=== PATIENT | male | born 1975 | race American Indian/Alaskan Native ===

== ENCOUNTER 2021-07-26 09:33 | Inpatient (IN) | payer SELFPAY ==
[2021-07-26] MEDS ORDERED: dilTIAZem 25 MG/5 ML INJ IV ONE (10:50)
[2021-07-26] MEDS ORDERED: AMIODARONE 150 MG/100 ML-ED 150 MG/100 ML BAG IV ONE (10:50)
--- NOTE | 2021-07-26 10:56 | Emergency Department Report ---
ED Palpitations HPI - General Chief Complaint: Chest Pain Stated Complaint: CHEST PAIN/ANDREEA Time Seen by Provider: 07/26/21 10:47 Source: patient Mode of arrival: Ambulatory Limitations: No Limitations - History of Present Illness Initial Comments: 45-year-old male with a history of hypertension and diabetes with morbid obesity who now presents with intermittent palpitation that has been going on for about a year after COVID-vaccine progressively worsened in the last 72 hours. Patient saw his cardiology in May about a month and a half ago when he has a normal EKG. Patient also mentioned right calf swelling and discomfort that has been going on for few weeks as well. Patient also reports some chest discomfort and associated with shortness of breath. No cough, fever or chills reported. No other modifying or associated factors reported. - Related Data Allergies Allergy/AdvReac Type Severity Reaction Status Date / Time No Known Allergies Allergy Verified 07/26/21 09:37 ED Review of Systems ROS: Stated complaint: CHEST PAIN/ANDREEA Other details as noted in HPI Comment: All other systems reviewed and negative Respiratory: shortness of breath, SOB with exertion, SOB at rest Cardiovascular: chest pain, palpitations ED Past Medical Hx - Past Medical History Previous Medical History?: Yes Hx Hypertension: Yes Hx Diabetes: Yes - Surgical History Past Surgical History?: No ED Physical Exam - General Limitations: No Limitations General appearance: alert, in distress (Due to shortness of breath), obese - Head Head exam: Present: atraumatic, normal inspection - Eye Eye exam: Present: normal appearance Pupils: Present: normal accommodation - ENT ENT exam: Present: normal exam, normal orophraynx, mucous membranes moist - Respiratory Respiratory exam: Present: normal lung sounds bilaterally, respiratory distress (Due to shortness of breath). Absent: accessory muscle use - Cardiovascular Cardiovascular Exam: Present: irregular rhythm (Atrial fibrillation) - GI/Abdominal GI/Abdominal exam: Present: soft, normal bowel sounds. Absent: distended, tenderness - Extremities Exam Extremities exam: Present: tenderness (Right calf with swelling), normal capillary refill, pedal edema - Neurological Exam Neurological exam: Present: alert, oriented X3 - Psychiatric Psychiatric exam: Present: normal affect, normal mood - Skin Skin exam: Present: warm, normal color ED Course Vital Signs 07/26/21 07/26/21 07/26/21 09:39 10:00 10:08 Temperature 98 F Pulse Rate 84 171 H 119 H Respiratory 16 25 H 17 Rate Blood Pressure Blood Pressure 168/104 165/84 [Left] O2 Sat by Pulse 96 98 Oximetry 07/26/21 07/26/21 07/26/21 10:15 10:31 10:45 Temperature Pulse Rate 125 H 116 H 105 H Respiratory 16 20 25 H Rate Blood Pressure 166/102 165/84 193/130 Blood Pressure [Left] O2 Sat by Pulse 97 100 99 Oximetry 07/26/21 07/26/21 07/26/21 10:49 11:01 11:15 Temperature Pulse Rate 110 H 113 H Respiratory 19 21 16 Rate Blood Pressure 141/89 128/97 Blood Pressure [Left] O2 Sat by Pulse 100 100 99 Oximetry 07/26/21 07/26/21 07/26/21 11:31 11:45 12:01 Temperature Pulse Rate 93 H 75 79 Respiratory 19 16 14 Rate Blood Pressure 131/88 131/94 139/90 Blood Pressure [Left] O2 Sat by Pulse 99 Oximetry 07/26/21 07/26/21 07/26/21 12:15 12:31 12:45 Temperature Pulse Rate 72 89 78 Respiratory 16 28 H 15 Rate Blood Pressure 144/98 141/94 137/99 Blood Pressure [Left] O2 Sat by Pulse Oximetry 07/26/21 14:11 Temperature Pulse Rate 78 Respiratory 14 Rate Blood Pressure Blood Pressure 137/99 [Left] O2 Sat by Pulse 99 Oximetry - Reevaluation(s) Reevaluation #1: 07/26/21 11:02 Patient is here with intermittent palpitation associated with chest pain and shortness of breath--noted on EKG with atrial fibrillation at a rate of 125 bpm--differential diagnosis may include but not limited to mild cardiac infarction, undiagnosed CHF, pulmonary embolism, DVT with unilateral swelling and tenderness of right calf, pneumonia, systemic infection so to rule out all this we will go ahead and order routine labs that include CBC, CMP, urinalysis--for any infectious process or electrolyte abnormality. We will also get cardiac enzyme/troponin in combination with the EKG. We will also order chest x-ray for any pulmonary infection and D-dimer for suspected DVT/PE. In the meantime given 20 mg of Cardizem for rate control and 150 mg of amiodarone for cardiac muscle stabilization. We will also go ahead and get cardiology involved in this patient and admit patient for further evaluation with likely echocardiogram of the heart to rule out any cardiac valve clot vegetation. Reevaluation #2: 07/26/21 12:34 Labs reviewed note this elevated D-dimer at 376.26--which raise concern for PE and DVT of the right leg so we will go ahead and order Doppler ultrasound of the right lower extremities and CTA of chest to rule out PE. Reevaluation #3: 07/26/21 14:06 CTA chest, CXR and US right leg noted with no acute findings -- pt will be called in to hospitalist for admission -- Reevaluation #4: 07/26/21 14:09 Dr Page consulted who accept pt for further evaluation and treatment - Consultations Consultation #1: 07/26/21 14:17 Dr. Camilo Nava hospitalist Consultation #2: 07/26/21 14:27 Dr Evita Dillon consulted who plan to follow up with patient when consulted ED Medical Decision Making - Lab Data Result diagrams: 07/26/21 10:57 07/26/21 10:57 - EKG Data -: EKG Interpreted by Me Rate: tachycardia (Atrial fibrillation at the rate of 125 beats per minutes) - EKG Data Interpretation: LVH 07/26/21 11:12 As noted above - Radiology Data Radiology results: report reviewed, image reviewed interpreted by me: CTA chest with no central PE CXR noted with no acute findings Doppler right lower leg with no DVT- - Medical Decision Making See progress note for detail CHADS2 with score of 2 with DM and hypertension -- this patient will need anticoagulant -- and EcHO on admission-- - Differential Diagnosis See progress note Critical Care Time: Yes (60 minutes) Critical care time in (mins) excluding proc time.: 60 Critical care attestation.: If time is entered above; I have spent that time in minutes in the direct care of this critically ill patient, excluding procedure time. This patient came in with palpitation and noted with atrial fibrillation with dyspnea and was immediately started on IV fluids given IV Cardizem for rate control and amiodarone for cardiac muscle stabilization and due to high prob ability of clinically significant, life threatening deterioration, this patient required my highest level of preparedness to intervene emergently and I personally spent this critical care time directly and personally managing this patient. This critical care time included obtaining a history; examining this patient; pulse oximetry ; ordering and review of studies ; arranging urgent treatment with development of a management plan ; evaluation of patient's response to treatment ; frequent reassessment ; and, discussion with other providers. This critical care time was performed to assess and manage the high probability of imminent, life-threatening deterioration that could result in multiple organ damage if not done in a timely fashion. ED Disposition Clinical Impression: Palpitations Atrial fibrillation Qualifiers: Atrial fibrillation type: unspecified Qualified Code(s): I48.91 - Unspecified atrial fibrillation Dyspnea Qualifiers: Dyspnea type: unspecified Qualified Code(s): R06.00 - Dyspnea, unspecified Chest pain Qualifiers: Chest pain type: chest pain on breathing Qualified Code(s): R07.1 - Chest pain on breathing Disposition: 09 ADMITTED INPATIENT Is pt being admited?: Yes Does the pt Need Aspirin: No Condition: Stable Instructions: Nonspecific Chest Pain, Adult Time of Disposition: 14:10 (Dr Page consulted who accept pt for further evaluation and treament )
[2021-07-26 11:05] LABS: Bacteria,Urine 1+ /HPF (Negative); Bilirubin,Urine NEG (Negative); Blood,Urine SM (Negative); Color,Urine Straw (Yellow); Urobilinogen,Urine < 2.0 mg/dL (<2.0)
[2021-07-26 11:12] LABS: Amphetamine Screen,Urine Negative; Benzodiazepines Screen,Urine Negative; Cocaine Screen,Urine Negative; Methadone Screen,Urine Negative; Opiate Screen,Urine Negative
[2021-07-26 11:19] LABS: Basophils % (Auto) 0.6 % (0.0-1.8); Eosinophils # (Auto) 0.1 K/mm3 (0.0-0.4); Eosinophils % (Auto) 1.4 % (0.0-4.3); Hematocrit 49.8 % (35.5-45.6); Hemoglobin 17.1 gm/dl (11.8-15.2); Lymphocytes # (Auto) 1.2 K/mm3 (1.2-5.4); Lymphocytes % (Auto) 19.8 % (13.4-35.0); Mean Corpuscular HGB Conc 34 % (32-34); Mean Corpuscular Volume 89 fl (84-94); Monocytes # (Auto) 0.6 K/mm3 (0.0-0.8); Monocytes % (Auto) 9.2 % (0.0-7.3); Platelet Count 205 K/mm3 (140-440); Red Blood Count 5.61 M/mm3 (3.65-5.03)
[2021-07-26 11:23] LABS: Cannabinoid Screen,Urine Positive
[2021-07-26 11:28] LABS: INR 0.87 (0.87-1.13)
[2021-07-26 11:29] LABS: Partial Thromboplastin Time 26.8 Sec. (24.2-36.6)
[2021-07-26 11:43] LABS: Alanine Aminotransferase 24 units/L (7-56); Albumin 3.3 g/dL (3.9-5); BUN/Creatinine Ratio 14; Blood Urea Nitrogen 20 mg/dL (9-20); Calcium 8.5 mg/dL (8.4-10.2); Hemolysis Index 11
[2021-07-26 11:46] LABS: Protein,Urine >500 mg/dL (Negative)
[2021-07-26] MEDS ORDERED: POTASSIUM CHLORIDE ER 20 MEQ TAB PO ONE (12:39)
--- NOTE | 2021-07-26 13:19 | Vascular Lab Report ---
DUPLEX DOPPLER LOWER EXTREMITY VEINS, RIGHT INDICATION / CLINICAL INFORMATION: elevated d-dimer and pain with swellings. TECHNIQUE: Duplex doppler imaging was performed through the veins of the right lower extremity using venous comp ression and other maneuvers. COMPARISON: None available. FINDINGS: RIGHT COMMON FEMORAL VEIN: Negative. RIGHT FEMORAL VEIN: Negative. RIGHT POPLITEAL VEIN: Negative. RIGHT CALF VEINS: Negative. ADDITIONAL FINDINGS: None. IMPRESSION: 1. No sonographic evidence for DVT in the right lower extremity. Signer Name: Ron Madden MD Signed: 07/26/2021 1:14 PM Workstation Name: [id number]
--- NOTE | 2021-07-26 13:33 | XRay Report ---
CHEST 1 VIEW INDICATION / CLINICAL INFORMATION: palpitation with chest pain and sob. COMPARISON: None available. FINDINGS: SUPPORT DEVICES: None. HEART / MEDIASTINUM: No significant abnormality. LUNGS / PLEURA: No significant pulmonary abnormality. BONES: No significant osseous abnormality. ADDITIONAL FINDINGS: No significant additional findings. IMPRESSION: 1. No active cardiopulmonary disease. Signer Name: Horacio Chow II, MD Signed: 07/26/2021 1:29 PM Workstation Name: [id number]
--- NOTE | 2021-07-26 13:55 | Cat Scan Report ---
CTA CHEST WITH CONTRAST INDICATION / CLINICAL INFORMATION: sob/ a-fib and elevated d-dimer. TECHNIQUE: Axial CT images were obtained through the chest after injection of 90 cc of Omnipaque 350 IV contrast. 3 plane MIP and/or 3D reconstructions were produced. All CT scans at this location are p erformed using CT dose reduction for ALARA by means of automated exposure control. COMPARISON: None available. FINDINGS: PULMONARY ARTERIES: No central pulmonary embolism. THORACIC AORTA: No significant abnormality. HEART: No significant abnormality. CORONARY ARTERY CALCIFICATION: None. MEDIASTINUM / DAR: No significant abnormality. PLEURA: No pleural effusion. No pneumothorax. LUNGS: No acute air space or interstitial disease. ADDITIONAL FINDINGS: Incidentally noted apparent right subclavian artery. UPPER ABDOMEN: No acute findings. SKELETAL STRUCTURES: No significant osseous abnormality. IMPRESSION: 1. No CT evidence for central pulmonary embolism. 2. No acute findings. Signer Name: Vidal Reyes DO Signed: 07/26/2021 1:51 PM Workstation Name: [email or web address]
[2021-07-26] MEDS ORDERED: MORPHINE 2 MG/1 ML INJ IV PRN ×2 (14:11→16:00)
[2021-07-26] MEDS ORDERED: IBUPROFEN 600 MG TAB PO PRN (14:11)
--- NOTE | 2021-07-26 15:02 | History and Physical Report ---
History of Present Illness Chief complaint: My heart is pounding in my chest History of present illness: 45 YO Male with HTN, DM, Obesity, Metabolic Syndrome presents to ED for evaluation. Patient reports "my heart is pounding inside my chest". Patient states that he has experienced the aforementioned symptoms over the past 1 year after mary lou a coronavirus infection. Patient states that his symptoms are intermittent over the past year and are normally relieved with rest and deep breathing. Patient states that he experienced persistence of the aforementioned symptoms over the past 72 hours with persistent and worsening symptoms over the same timeframe. Patient knowledges shortness of breath, chest discomfort, decreased exercise tolerance, orthopnea, as well as paroxysmal nocturnal dyspnea. Patient transported to [facility] via private vehicle for further care and evaluation of the aforementioned symptoms. The patient was seen and evaluated in the emergency department. All lab and imaging studies reviewed. Patient was found to have a blood pressure of 168/104 mmHg. Patient underwent EKG and was found to have new onset atrial fibrillation with rapid ventricular response with a heart rate in the 170s, as well as clinical symptoms consistent with CHF decompensation. Patient treated with IV amiodarone therapy as well as Cardizem in the emergency department with improvement in symptoms. Patient subsequently remained in atrial fibrillation. Admitted to telemetry due to increased risk of worsening symptoms. Cardiology team consulted in ED. Patient denies fever, chills, productive cough, skin rash, recent contact, known exposure to COVID-19. No prior admission for review. No medication listed at time of admission for reconciliation. Advanced care planning conducted in ED. Past History Past Medical History: diabetes, hypertension, other (See HPI) Past Surgical History: No surgical history Social history: , lives with family. denies: smoking, alcohol abuse, prescription drug abuse Family history: diabetes, hypertension Medications and Allergies Allergies Allergy/AdvReac Type Severity Reaction Status Date / Time No Known Allergies Allergy Verified 07/26/21 09:37 Active Meds: Active Medications Ibuprofen (Ibuprofen 600 Mg Tab) 600 mg PO Q6H PRN PRN Reason: Pain, Mild (1-3) Morphine Sulfate (Morphine 2 Mg/1 Ml Inj) 2 mg IV Q4H PRN PRN Reason: Pain, Moderate (4-6) Sodium Chloride (Sodium Chloride 0.9% 10 Ml Flush Syringe) 10 ml IV BID CHELSIE Sodium Chloride (Sodium Chloride 0.9% 10 Ml Flush Syringe) 10 ml IV PRN PRN PRN Reason: LINE FLUSH Review of Systems Constitutional: weight gain, fatigue, no weight loss, no fever, no chills Ears, nose, mouth and throat: no ear pain, no ear discharge, no decreased hearing, no nasal congestion Cardiovascular: chest pain, orthopnea, rapid/irregular heart beat, shortness of breath, dyspnea on exertion, paroxysmal nocturnal dyspnea, high blood pressure, decreased exercise tolerance Gastrointestinal: no abdominal pain, no nausea, no vomiting, no diarrhea Genitourinary Male: no hematuria, no flank pain, no discharge, no urinary frequency, no urinary hesitancy Rectal: no pain, no incontinence, no bleeding Musculoskeletal: no neck stiffness, no neck pain, no shooting arm pain, no arm numbness/tingling, no low back pain Integumentary: no rash, no pruritis, no redness, no sores, no wounds, no jaundice Neurological: no head injury, no transient paralysis, no paralysis, no weakness, no parathesias, no numbness, no tingling, no seizures Psychiatric: no anxiety, no memory loss, no sleep disturbances, no insomnia, no hypersomnia, no change in appetite, no suicidal ideation Endocrine: no cold intolerance, no heat intolerance, no polyphagia, no excessive thirst, no polydipsia, no polyuria, no nocturia Hematologic/Lymphatic: no easy bruising, no easy bleeding Allergic/Immunologic: no urticaria, no allergic rhinitis, no wheezing Exam - Constitutional Vitals: Temp Pulse Resp BP Pulse Ox 98 F 78 14 137/99 99 07/26/21 09:39 07/26/21 14:11 07/26/21 14:11 07/26/21 14:11 07/26/21 14:11 General appearance: Present: mild distress, obese - EENT Eyes: Present: PERRL ENT: hearing intact, clear oral mucosa - Neck Neck: Present: supple, normal ROM - Respiratory Respiratory effort: normal Respiratory: bilateral: CTA - Cardiovascular Rhythm: irregularly irregular Heart Sounds: Present: S1 & S2. Absent: rub, click - Extremities Extremities: pulses symmetrical Extremity abnormal: edema Peripheral Pulses: within normal limits - Abdominal General gastrointestinal: Present: soft, non-tender, non-distended, normal bowel sounds Male genitourinary: Present: normal - Integumentary Integumentary: Present: clear, warm, dry - Musculoskeletal Musculoskeletal: gait normal, strength equal bilaterally - Psychiatric Psychiatric: appropriate mood/affect, intact judgment & insight - Neurologic Neurologic: CNII-XII intact, moves all extremities HEART Score - HEART Score Troponin: Troponin T < 0.010 ng/mL (0.00-0.029) 07/26/21 10:57 Results - Labs CBC & Chem 7: 07/26/21 10:57 07/26/21 10:57 Labs: Abnormal lab results 07/26/21 07/26/21 07/26/21 Range/Units 10:57 10:57 10:57 RBC 5.61 H (3.65-5.03) M/mm3 Hgb 17.1 H (11.8-15.2) gm/dl Hct 49.8 H (35.5-45.6) % [place] % (Auto) 9.2 H (0.0-7.3) % D-Dimer 376.26 H (0-234) ng/mlDDU Potassium 3.2 L (3.6-5.0) mmol/L Chloride 108.1 H (98-107) mmol/L Creatinine 1.4 H (0.8-1.3) mg/dL Glucose 138 H (75-100) mg/dL Albumin 3.3 L (3.9-5) g/dL Urine pH (5.0-7.0) 07/26/21 Range/Units Unknown RBC (3.65-5.03) M/mm3 Hgb (11.8-15.2) gm/dl Hct (35.5-45.6) % [place] % (Auto) (0.0-7.3) % D-Dimer (0-234) ng/mlDDU Potassium (3.6-5.0) mmol/L Chloride (98-107) mmol/L Creatinine (0.8-1.3) mg/dL Glucose (75-100) mg/dL Albumin (3.9-5) g/dL Urine pH 8.0 H (5.0-7.0) Assessment and Plan - Patient Problems (1) New onset atrial fibrillation Status: Acute Plan to address problem: Patient treated with medical cardioversion in the emergency department. Patient remains in atrial fibrillation. Telemetry monitoring, rate control, cardiology team consulted, prophylactic anticoagulation for now, full dose aspirin, echocardiogram ordered and pending at time of admission, thyroid panel, magnesium level. [id number] score: 2 (2) Angina at rest Status: Acute Plan to address problem: Cardiology team consulted, suspect secondary to atrial fibrillation with rapid ventricular response, pain control, supportive care. Further care and evaluation as per cardiology team. (3) Diastolic CHF Status: Acute Qualifiers: Heart failure chronicity: acute Qualified Code(s): I50.31 - Acute diastolic (congestive) heart failure Plan to address problem: Strict I's/O, monitor urine output every shift, daily weight, afterload reduction, blood pressure control, thyroid panel, magnesium level, echocardiogram ordered and pending at time of admission. (4) Hypertension Status: Acute Qualifiers: Hypertension type: primary hypertension Qualified Code(s): I10 - Essential (primary) hypertension Plan to address problem: Monitor blood pressure every shift, continue medical management. (5) Diabetes Status: Acute Plan to address problem: Consistent carbohydrate diet, Accu-Chek, insulin protocol, hypoglycemia protocol. (6) DVT prophylaxis Status: Acute Plan to address problem: SCD to bilateral lower extremities while in bed, prophylactic anticoagulation (7) Advance care planning Status: Acute Plan to address problem: Disease education data, care plan discussed, diagnoses discussed, prognosis discussed, patient is full code. Patient acknowledges understanding and agreement with care plan, +30 minutes. (8) Preventative health care Status: Acute Plan to address problem: Patient counseled regarding abstinence from marijuana, balanced diet, weight loss, increase physical activity discharge, outpatient follow-up with primary care physician for all age and risk factor appropriate screening test. +30 minutes.
[2021-07-26] MEDS ORDERED: MORPHINE 4 MG/1 ML INJ IV PRN (15:05)
[2021-07-26] MEDS ORDERED: HEPARIN 5,000 UNIT/1 ML VIAL SUB-Q SCH (15:22)
[2021-07-26] MEDS ORDERED: ONDANSETRON 4 MG/2 ML INJ IV PRN (15:30)
[2021-07-26] MEDS ORDERED: oxyCODONE /ACETAMINOPHEN 5-325MG TAB PO PRN (15:30)
[2021-07-26] MEDS ORDERED: ACETAMINOPHEN 325 MG TAB PO PRN (15:30)
[2021-07-26] MEDS ORDERED: ALBUTEROL 2.5 MG/3 ML NEBU IH PRN (16:00)
--- NOTE | 2021-07-26 16:41 | Consultation ---
History of Present Illness Consult date: 07/26/21 Requesting physician: CLAYTON GARCIA Consult reason: atrial fibrillation History of present illness: Patient is a 45-year-old male with a past medical history of hypertension, diabetes, GERD who presented to the ED today with a complaint of palpitations which started this a.m. Patient reports that for about a year after receiving the COVID vaccination he has had intermittent palpitations however when he woke up this morning he reports that the palpitations were worse than his ever had them before. He also reports some lightheadedness and shortness of breath associated with the palpitation. Patient came to the ED to be further evaluated. In the ED patient was treated with IV Cardizem and IV amiodarone and per ED staff patient became rate controlled. Patient denies any complaint of c hest pain, nausea, vomiting, lightheadedness, or diaphoresis. At the time of interview patient also reports that he is no longer short of breath. Patient is previously unknown to our practice. Cardiology is consulted for new onset A. fib. Past History Past Medical History: diabetes, hypertension, other (See HPI) Past Surgical History: No surgical history Social history: , lives with family. denies: smoking, alcohol abuse, prescription drug abuse Family history: diabetes, hypertension Medications and Allergies Allergies Allergy/AdvReac Type Severity Reaction Status Date / Time No Known Allergies Allergy Verified 07/26/21 09:37 Active Meds: Active Medications Acetaminophen (Acetaminophen 325 Mg Tab) 650 mg PO Q4H PRN PRN Reason: Pain MILD(1-3)/Fever >100.5/MONSON Albuterol (Albuterol 2.5 Mg/3 Ml Nebu) 2.5 mg IH Q4HRT PRN PRN Reason: Shortness Of Breath Aspirin (Aspirin 325 Mg Tab) 325 mg PO QDAY CHELSIE Ibuprofen (Ibuprofen 600 Mg Tab) 600 mg PO Q6H PRN PRN Reason: Pain, Mild (1-3) Morphine Sulfate (Morphine 2 Mg/1 Ml Inj) 2 mg IV Q8H PRN PRN Reason: Pain , Severe (7-10) Ondansetron HCl (Ondansetron 4 Mg/2 Ml Inj) 4 mg IV Q8H PRN PRN Reason: Nausea And Vomiting Oxycodone/Acetaminophen (Oxycodone /Acetaminophen 5-325mg Tab) 1 tab PO Q6H PRN PRN Reason: Pain, Moderate (4-6) Sodium Chloride (Sodium Chloride 0.9% 10 Ml Flush Syringe) 10 ml IV BID CHELSIE Sodium Chloride (Sodium Chloride 0.9% 10 Ml Flush Syringe) 10 ml IV PRN PRN PRN Reason: LINE FLUSH Review of Systems Constitutional: no fever, no chills, no sweats Ears, nose, mouth and throat: no sinus pressure, no sinus pain Cardiovascular: palpitations, lightheadedness, shortness of breath, no chest pain Respiratory: shortness of breath, no cough, no dyspnea on exertion Gastrointestinal: no abdominal pain, no nausea, no vomiting Musculoskeletal: no neck pain, no low back pain, no shooting leg pain, no leg numbness/tingling Integumentary: no rash, no pruritis, no redness Neurological: no head injury, no transient paralysis, no weakness Psychiatric: no anxiety, no memory loss Endocrine: no cold intolerance, no heat intolerance Hematologic/Lymphatic: no easy bruising, no easy bleeding Physical Examination Vital Signs Temp Pulse Resp BP Pulse Ox 98 F 84 16 168/104 96 07/26/21 09:39 07/26/21 09:39 07/26/21 09:39 07/26/21 09:39 07/26/21 09:39 General appearance: no acute distress HEENT: Positive: PERRL, Normocephaly Neck: Positive: trachea midline Cardiac: Positive: irregularly irregular Lungs: Positive: Normal Breath Sounds Neuro: Positive: Grossly Intact Abdomen: Positive: Soft, Active Bowel Sounds Skin: Negative: Rash, Suspicious Lesions, Ulceration Extremities: Present: upper extr. pulses Results 07/26/21 10:57 07/26/21 10:57 Cardiac Enzymes 07/26/21 Range/Units 10:57 AST 23 (5-40) units/L Coagulation 07/26/21 Range/Units 10:57 PT 12.7 (12.2-14.9) Sec. INR 0.87 (0.87-1.13) APTT 26.8 (24.2-36.6) Sec. CBC 07/26/21 Range/Units 10:57 WBC 6.2 (4.5-11.0) K/mm3 RBC 5.61 H (3.65-5.03) M/mm3 Hgb 17.1 H (11.8-15.2) gm/dl Hct 49.8 H (35.5-45.6) % Plt Count 205 (140-440) K/mm3 Lymph # (Auto) 1.2 (1.2-5.4) K/mm3 [place] # (Auto) 0.6 (0.0-0.8) K/mm3 Eos # (Auto) 0.1 (0.0-0.4) K/mm3 Baso # (Auto) 0.0 (0.0-0.1) K/mm3 Comprehensive Metabolic Panel 07/26/21 Range/Units 10:57 Sodium 142 (137-145) mmol/L Potassium 3.2 L (3.6-5.0) mmol/L Chloride 108.1 H (98-107) mmol/L Carbon Dioxide 24 (22-30) mmol/L BUN 20 (9-20) mg/dL Creatinine 1.4 H (0.8-1.3) mg/dL Glucose 138 H (75-100) mg/dL Calcium 8.5 (8.4-10.2) mg/dL AST 23 (5-40) units/L ALT 24 (7-56) units/L Alkaline Phosphatase 78 (35-129) units/L Total Protein 6.4 (6.3-8.2) g/dL Albumin 3.3 L (3.9-5) g/dL - Imaging and Cardiology Echo: pending EKG: pending, image reviewed EKG interpretations - Telemetry EKG Rhythm: Atrial Fibrillation - EKG Supraventricular dysrhythmia: atrial fibrillation Assessment and Plan Patient is a 45-year-old male with a past medical history of hypertension, diabetes, GERD who presented to the ED today with a complaint of palpitations which started the morning of admission to A. fib with RVR Hypertension Diabetes GERD Plan: EKG shows A. fib with RVR rate 125 and LVH. No acute ischemic changes. Troponins negative x1. Patient denies any complaint of chest pain Repeat EKG pending Will stop metoprolol 25 mg p.o. twice daily and convert to Cardizem 30 mg p.o. 3 times daily Initiate anticoagulation with Eliquis Mg and Echo pending BNP negative and patient appears euvolemic on exam without any complaints of shortness of breath patient is not clinically in heart failure Patient seen in conjunction with Dr. Archuleta who agrees with this plan of care - Patient Problems (1) Diabetes Current Visit: No Status: Acute (2) New onset atrial fibrillation Current Visit: No Status: Acute (3) Palpitations Current Visit: No Status: Acute
[2021-07-26] MEDS ORDERED: METOPROLOL TARTRATE 25 MG TAB PO SCH (17:00)
[2021-07-26] MEDS: dilTIAZem 30 MG TAB PO SCH ×2 (17:27→21:21)
[2021-07-26] MEDS ORDERED: dilTIAZem 30 MG TAB PO SCH (18:00)
[2021-07-26 18:37] LABS: Hematocrit 45.7 % (35.5-45.6); Hemoglobin 15.6 gm/dl (11.8-15.2); Mean Corpuscular HGB Conc 34 % (32-34); Mean Corpuscular Volume 90 fl (84-94); Platelet Count 197 K/mm3 (140-440); Red Cell Distribution Width 14.3 % (13.2-15.2)
[2021-07-26 18:47] LABS: INR 0.88 (0.87-1.13)
[2021-07-26 18:48] LABS: Partial Thromboplastin Time 27.8 Sec. (24.2-36.6)
[2021-07-26] MEDS: APIXABAN 5 MG TAB PO SCH (21:19)
[2021-07-27] MEDS: dilTIAZem 30 MG TAB PO SCH ×2 (07:16→15:00)
--- NOTE | 2021-07-27 09:44 | Progress Note ---
Assessment and Plan Patient is a 45-year-old male with a past medical history of hypertension, diabetes, GERD who presented to the ED today with a complaint of palpitations which started the morning of admission to [facility] with RVR Hypertension Diabetes GERD Plan: Patient is back in sinus rhythm. He is now on systemic anticoagulation with Blessing fadia. Continue Cardizem. Follow-up and optimize electrolytes. Follow-up on echocardiogram. Likely discharge soon. Discussed with patient. Subjective Interval history: Patient feels much better. Nayan is with him in the room. No complaints. Objective Vital Signs Temp Pulse Resp BP BP Pulse Ox 07/27/21 07:16 67 07/27/21 07:13 98.2 F 61 18 163/90 98 07/27/21 04:26 64 20 171/89 93 07/27/21 04:00 61 07/26/21 23:56 60 18 163/93 97 07/26/21 23:55 99.1 F 60 18 169/93 94 07/26/21 23:08 96 07/26/21 21:21 92 H 07/26/21 20:07 60 18 165/103 99 07/26/21 20:05 99.1 F 96 H 18 165/103 96 07/26/21 20:00 103 H 07/26/21 19:01 158 H 19 65/35 07/26/21 18:51 144 H 11 L 65/35 07/26/21 18:41 142 H 18 177/109 07/26/21 18:39 140 H 17 177/109 07/26/21 17:27 88 155/99 07/26/21 17:24 90 15 155/99 100 07/26/21 15:00 90 19 155/99 07/26/21 14:45 106 H 17 137/99 07/26/21 14:31 99 H 15 162/101 07/26/21 14:15 93 H 137/99 07/26/21 14:11 78 14 137/99 99 07/26/21 12:45 78 15 137/99 07/26/21 12:31 89 28 H 141/94 07/26/21 12:15 72 16 144/98 07/26/21 12:01 79 14 139/90 07/26/21 11:45 75 16 131/94 07/26/21 11:31 93 H 19 131/88 99 07/26/21 11:15 113 H 16 128/97 99 07/26/21 11:01 110 H 21 141/89 100 07/26/21 10:49 19 100 07/26/21 10:45 105 H 25 H 193/130 99 07/26/21 10:31 116 H 20 165/84 100 07/26/21 10:15 125 H 16 166/102 97 07/26/21 10:08 119 H 17 165/84 98 07/26/21 10:00 171 H 25 H - Physical Examination HEENT: Positive: PERRL, Normocephaly Neck: Positive: trachea midline Neuro: Positive: Grossly Intact Abdomen: Positive: Soft, Active Bowel Sounds Skin: Negative: Rash, Suspicious Lesions, Ulceration Extremities: Present: upper extr. pulses - Labs and Meds Cardiac Enzymes 07/26/21 Range/Units 10:57 AST 23 (5-40) units/L Coagulation 07/26/21 07/26/21 Range/Units 10:57 18:05 PT 12.7 12.9 (12.2-14.9) Sec. INR 0.87 0.88 (0.87-1.13) APTT 26.8 27.8 (24.2-36.6) Sec. CBC 07/26/21 07/26/21 Range/Units 10:57 18:05 WBC 6.2 6.2 (4.5-11.0) K/mm3 RBC 5.61 H 5.10 H (3.65-5.03) M/mm3 Hgb 17.1 H 15.6 H (11.8-15.2) gm/dl Hct 49.8 H 45.7 H (35.5-45.6) % Plt Count 205 197 (140-440) K/mm3 Lymph # (Auto) 1.2 (1.2-5.4) K/mm3 [place] # (Auto) 0.6 (0.0-0.8) K/mm3 Eos # (Auto) 0.1 (0.0-0.4) K/mm3 Baso # (Auto) 0.0 (0.0-0.1) K/mm3 Comprehensive Metabolic Panel 07/26/21 07/26/21 Range/Units 10:57 18:05 Sodium 142 (137-145) mmol/L Potassium 3.2 L (3.6-5.0) mmol/L Chloride 108.1 H (98-107) mmol/L Carbon Dioxide 24 (22-30) mmol/L BUN 20 (9-20) mg/dL Creatinine 1.4 H 1.6 H (0.8-1.3) mg/dL Glucose 138 H (75-100) mg/dL Calcium 8.5 (8.4-10.2) mg/dL AST 23 (5-40) units/L ALT 24 (7-56) units/L Alkaline Phosphatase 78 (35-129) units/L Total Protein 6.4 (6.3-8.2) g/dL Albumin 3.3 L (3.9-5) g/dL - Imaging and Cardiology EKG: pending, image reviewed Echo: pending
[2021-07-27] MEDS ORDERED: levETIRAcetam 500 MG TAB PO SCH (10:00)
[2021-07-27] MEDS ORDERED: NON-FORMULARY EACH (Rosuvastatin Calcium [Crestor] 10 MG Tablet) PO SCH (10:00)
[2021-07-27] MEDS ORDERED: PANTOPRAZOLE 40 MG TAB PO SCH (10:00)
[2021-07-27] MEDS ORDERED: NON-FORMULARY EACH (Omeprazole [Omeprazole] 40 MG Capsule.Dr) PO SCH (10:00)
[2021-07-27] MEDS ORDERED: NON-FORMULARY EACH (Losartan [Cozaar] 100 MG Tablet) PO SCH (10:00)
[2021-07-27] MEDS ORDERED: LOSARTAN 50 MG TAB PO SCH (10:00)
[2021-07-27] MEDS ORDERED: NON-FORMULARY EACH (Metformin Hcl [Metformin] 1,000 MG Tablet) PO SCH (10:00)
[2021-07-27] MEDS ORDERED: metFORMIN 500 MG TAB PO SCH (10:00)
[2021-07-27] MEDS ORDERED: ASPIRIN 325 MG TAB PO SCH (10:00)
[2021-07-27] MEDS: APIXABAN 5 MG TAB PO SCH (10:14)
--- NOTE | 2021-07-27 11:19 | Progress Note ---
Assessment and Plan Patient is a 45-year-old male with a past medical history of hypertension, diabetes, GERD who presented to the ED with a complaint of palpitations which started this a.m. In the ED patient was found to be in atrial fibrillation and was treated with IV Cardizem and IV amiodarone and per ED staff patient became rate controlled. Cardiology is consulted for new onset Atrial fib 07/27: Patient is back in sinus rhythm. He is now on systemic anticoagulation with Eliquis. Continue Cardizem. Follow-up and optimize electrolytes. Follow-up on echocardiogram. Likely discharge soon. Discussed with patient. Assessment and plan: (1) New onset atrial fibrillation Status: Acute Plan to address problem: Patient treated with medical cardioversion in the emergency department. Patient remains in atrial fibrillation. Telemetry monitoring, rate control, cardiology team consulted, prophylactic anticoagulation for now, full dose aspirin, echocardiogram ordered, follow thyroid panel, magnesium level. [id number] score: 2 (2) Angina at rest Status: Acute Plan to address problem: Cardiology team consulted, suspect secondary to atrial fibrillation with rapid ventricular response, pain control, supportive care. Further care and evaluation as per cardiology team. (3) Diastolic CHF Status: Acute Qualifiers: Heart failure chronicity: acute Qualified Code(s): I50.31 - Acute diastolic (congestive) heart failure Plan to address problem: Strict I's/O, monitor urine output every shift, daily weight, afterload reduction, blood pressure control, thyroid panel, magnesium level, echocardiogram ordered and pending at time of admission. (4) Hypertension Status: Acute Qualifiers: Hypertension type: primary hypertension Qualified Code(s): I10 - Essential (primary) hypertension Plan to address problem: Monitor blood pressure every shift, continue medical management. (5) Diabetes Status: Acute Plan to address problem: Consistent carbohydrate diet, Accu-Chek, insulin protocol, hypoglycemia protocol. (6) DVT prophylaxis Status: Acute Plan to address problem: SCD to bilateral lower extremities while in bed, prophylactic anticoagulation (7) Advance care planning Status: Acute Plan to address problem: Disease education data, care plan discussed, diagnoses discussed, prognosis discussed, patient is full code. Patient acknowledges understanding and agreement with care plan, +30 minutes. (8) Preventative health care Status: Acute Plan to address problem: Patient counseled regarding abstinence from marijuana, balanced diet, weight loss, increase physical activity discharge, outpatient follow-up with primary care physician for all age and risk factor appropriate screening test. +30 minutes. Subjective Date of service: 07/27/21 Interval history: Patient seen and examined. Medical records and medication list reviewed. No acute event overnight noted by the RN. Patient denies any chest pain or difficulty breathing. Patient is tolerating diet. Discussed plan of care at bedside with patient. Patient is rate controlled and monitor Objective - Exam Narrative Exam: GENERAL: well-developed and well-nourished male lying on bed appeared to be in no discomfort. HEENT: Normocephalic. Atraumatic. No conjunctival congestion or icterus. Patient has moist mucous membranes. NECK: Supple. Trachea midline. CHEST/LUNGS: Clear to auscultated bilaterally, breathing nonlabored. No wheezes crackles or rhonchi. HEART/CARDIOVASCULAR: Regular in rate and rhythm. S1 and S2 positive. ABDOMEN: Abdomen is soft, nontender. Patient has normal bowel sounds. SKIN: There is no rash. Warm and dry. NEURO: No focal motor deficit. Follows command. MUSCULOSKELETAL: No joint effusion or tenderness. EXTRIMITY: No edema, no cyanosis or clubbing. PSYCH: Cooperative. - Constitutional Vitals: Vital Signs - 12hr 07/26/21 07/26/21 07/27/21 23:55 23:56 04:00 Temperature 99.1 F Pulse Rate 60 60 61 Respiratory 18 18 Rate Blood Pressure 163/93 Blood Pressure 169/93 [Left] O2 Sat by Pulse 94 97 Oximetry 07/27/21 07/27/21 07/27/21 04:26 07:13 07:16 Temperature 98.2 F Pulse Rate 64 61 67 Respiratory 20 18 Rate Blood Pressure 171/89 163/90 Blood Pressure [Left] O2 Sat by Pulse 93 98 Oximetry 07/27/21 07/27/21 09:43 10:14 Temperature Pulse Rate 67 Respiratory Rate Blood Pressure Blood Pressure [Left] O2 Sat by Pulse 98 Oximetry - Labs CBC & Chem 7: 07/26/21 18:05 07/26/21 18:05 Labs: Abnormal lab results 07/26/21 07/26/21 07/26/21 Range/Units 10:57 10:57 10:57 RBC 5.61 H (3.65-5.03) M/mm3 Hgb 17.1 H (11.8-15.2) gm/dl Hct 49.8 H (35.5-45.6) % [place] % (Auto) 9.2 H (0.0-7.3) % D-Dimer 376.26 H (0-234) ng/mlDDU Potassium 3.2 L (3.6-5.0) mmol/L Chloride 108.1 H (98-107) mmol/L Creatinine 1.4 H (0.8-1.3) mg/dL Glucose 138 H (75-100) mg/dL NT-Pro-B Natriuret Pep (0-450) pg/mL Albumin 3.3 L (3.9-5) g/dL Urine pH (5.0-7.0) 07/26/21 07/26/21 07/26/21 Range/Units 16:00 18:05 18:05 RBC 5.10 H (3.65-5.03) M/mm3 Hgb 15.6 H (11.8-15.2) gm/dl Hct 45.7 H (35.5-45.6) % [place] % (Auto) (0.0-7.3) % D-Dimer (0-234) ng/mlDDU Potassium (3.6-5.0) mmol/L Chloride (98-107) mmol/L Creatinine 1.6 H (0.8-1.3) mg/dL Glucose (75-100) mg/dL NT-Pro-B Natriuret Pep 640.7 H (0-450) pg/mL Albumin (3.9-5) g/dL Urine pH (5.0-7.0) 07/26/21 Range/Units Unknown RBC (3.65-5.03) M/mm3 Hgb (11.8-15.2) gm/dl Hct (35.5-45.6) % [place] % (Auto) (0.0-7.3) % D-Dimer (0-234) ng/mlDDU Potassium (3.6-5.0) mmol/L Chloride (98-107) mmol/L Creatinine (0.8-1.3) mg/dL Glucose (75-100) mg/dL NT-Pro-B Natriuret Pep (0-450) pg/mL Albumin (3.9-5) g/dL Urine pH 8.0 H (5.0-7.0) HEART Score - HEART Score Troponin: Troponin T < 0.010 ng/mL (0.00-0.029) 07/26/21 10:57
[2021-07-27 14:17] VITALS: BP 164/97
--- NOTE | 2021-07-28 11:29 | Discharge Summary ---
Providers - Providers Date of Admission: 07/26/21 15:06 Date of discharge: 07/27/21 Attending physician: DRU CISSE 07/26/21 14:26 Consult to Physician [CONS] Routine Comment: Consulting Provider: KIM NUÑEZ Physician Instructions: Reason For Exam: new a-fib Hospitalization Condition: Stable Hospital course: Patient is a 45-year-old male with a past medical history of hypertension, diabetes, GERD who presented to the ED with a complaint of palpitations which started this a.m. In the ED patient was found to be in atrial fibrillation and was treated with IV Cardizem and IV amiodarone and per ED staff patient became rate controlled. Cardiology is consulted for new onset Atrial fib. 07/27: Patient is back in sinus rhythm. He is now on systemic anticoagulation with Eliquis. Continue Cardizem for rate control. Preserved EF on 2d echocardiogram. Patient wants to f/u at [facility] for further workup. He will be discharged home in stable condition. Patient advised to f/u at [facility] next week. Disposition: HOME / SELF CARE / HOMELESS Final Discharge Diagnosis (Prints w/discharge instructions): --New onset atrial fibrillation. -- Chest pain, resolved, likely from GERD. --Diastolic CHF. --Hypertension. -- Diabetes. --HEMAL with hypokalemia Time spent for discharge: 34 minutes Core Measure Documentation - Palliative Care Palliative Care/ Comfort Measures: Not Applicable - Core Measures Any of the following diagnoses?: none Exam - Physical Exam Narrative exam: GENERAL: well-developed and well-nourished AAM lying on bed appeared to be in no discomfort. HEENT: Normocephalic. Atraumatic. No conjunctival congestion or icterus. Patient has moist mucous membranes. NECK: Supple. Trachea midline. CHEST/LUNGS: Clear to auscultated bilaterally, breathing nonlabored. No wheezes crackles or rhonchi. HEART/CARDIOVASCULAR: Regular in rate and rhythm. S1 and S2 positive. ABDOMEN: Abdomen is soft, nontender. Patient has normal bowel sounds. SKIN: There is no rash. Warm and dry. NEURO: No focal motor deficit. Follows command. MUSCULOSKELETAL: No joint effusion or tenderness. EXTRIMITY: No edema, no cyanosis or clubbing. PSYCH: Cooperative. - Constitutional Vitals: Temp Pulse Resp BP Pulse Ox 98.4 F 83 20 144/87 96 07/27/21 12:15 07/27/21 15:00 07/27/21 12:15 07/27/21 15:00 07/27/21 16:00 Plan Activity: advance as tolerated Weight Bearing Status: Weight Bear as Tolerated Diet: low fat, low salt Additional Instructions: Repeat BMP in 2 days. F/u at [facility] by next week Follow up with: YURI LOAIZA [Other] - 7 Days Prescriptions: dilTIAZem [Cardizem] 30 mg PO Q8HR #120 tablet Apixaban [Eliquis] 5 mg PO Q12HR #60 tablet
== END 2021-07-27 15:15 | disposition home or self-care (01) | DRG 291 ==
LOC: ED 09:33 → 4A 15:06
PROVIDERS: ADMIT Internal Medicine; ATTEND Internal Medicine
DX: I11.0 Hypertensive heart disease with heart failure (principal); I50.31 Acute diastolic (congestive) heart failure; N17.9 Acute kidney failure, unspecified; K21.9 Gastro-esophageal reflux disease without esophagitis; I48.91 Unspecified atrial fibrillation; I20.8 Other forms of angina pectoris; E66.9 Obesity, unspecified; E87.6 Hypokalemia; E11.9 Type 2 diabetes mellitus without complications; Z83.3 Family history of diabetes mellitus; Z82.49 Family history of ischemic heart disease and other diseases of the circulatory system
CPT/HCPCS: 36415; 71045; 71275; 80053; 80307; 81001; 82565; 83735; 83880; 84439; 84443; 84484; 85025; 85027; 85379; 85610; 85730; 93005; 93306; G0378; J3490; C8929; J0282; Q9967